=== PATIENT | male | born 1950 | race Caucasian/White ===

== ENCOUNTER 2018-08-18 12:35 | Inpatient (IN) | payer BC, MEDICARE ==
[~2018-08-18] VITALS: Ht 167.6 cm; Wt 88.0 kg
[2018-08-18] MEDS ORDERED: ASPIRIN 32325 MG/TAB PO (12:59)
[2018-08-18] MEDS ORDERED: LEVEMIR100 U/ML SQ (13:00)
[2018-08-18] MEDS ORDERED: FARXIGA10 PO (13:00)
[2018-08-18] MEDS ORDERED: GLUCOPHAGE500 MG/TAB PO (13:02)
[2018-08-18] MEDS ORDERED: LOPRESSOR 550 MG/TAB PO (13:02)
[2018-08-18] MEDS ORDERED: PLAVIX 75MG TAB75 MG PO (13:04)
[2018-08-18] MEDS ORDERED: CELEXA 20MG20 MG/TAB PO (13:04)
[2018-08-18] MEDS ORDERED: DOXYCYCLINE 10100 MG PO (13:05)
[2018-08-18] MEDS ORDERED: CRESTOR40 MG PO (13:05)
[2018-08-18] MEDS ORDERED: JANUVIA 100MG100 MG PO (13:06)
[2018-08-18 13:07] VITALS: BP 129/67; PULSE 51; TEMP 98
[2018-08-18] MEDS ORDERED: HYZAAR 12.5 MG-1 TAB PO (13:07)
[2018-08-18 15:22] LABS: BASO % 0.3 % (0.0-2.0); EOS # 0.2 (0.0-0.7); EOS % 2.2 % (0-4.0); GRAN # 4.1 (1.4-6.5); GRAN % 55.5 % (42.2-75.2); HEMATOCRIT 49.3 % (42.0-52.0); HEMOGLOBIN 16.6 g/dl (13.5-18.0); LYMPH # 2.2 (1.2-3.4); MEAN CELL VOLUME 91 fl (80.0-100.0); MEAN CORPUSCULAR HEMOGLOBIN 31 pg (27.0-31.0); MEAN CORPUSCULAR HGB CONC 34 g/dl (33.0-37.0); MEAN PLATELET VOLUME 12.9 fl (7.4-10.4); MONO # 0.9 (0.1-0.6); MONO % 11.5 % (1.7-9.3); PLATELET COUNT 105 K/mm3 (130-400); RED BLOOD COUNT 5.42 M/mm3 (4.20-5.60); REDCELL DISTRIBUTION WIDTH-CV 13.3 % (11.5-14.5)
[2018-08-18 15:24] LABS: PROTHROMBIN TIME 11.9 SECONDS (9.7-12.8)
[2018-08-18 15:27] LABS: PARTIAL THROMBOPLASTIN TIME 34.1 SECONDS (26.0-37.0)
[2018-08-18 15:32] LABS: ALANINE AMINOTRANSFERASE 38 U/L (21-72); ALBUMIN 3.9 gm/dL (3.5-5.0); ALKALINE PHOSPHATASE 58 U/L (50-136); ANION GAP 11 mmol/L (7-16); AST,SGOT 34 U/L (15-37); BILIRUBIN,TOTAL 0.5 mg/dL (0.0-1.0); BLOOD UREA NITROGEN 21 mg/dL (9-20); CALCIUM 9.1 mg/dL (8.4-10.2); CARBON DIOXIDE 28 mmol/L (22-30); CHLORIDE 101 mmol/L (98-107); GLUCOSE 120 mg/dL (74-106); MAGNESIUM 1.7 mg/dL (1.6-2.3); POTASSIUM 4.3 mmol/L (3.4-5.0); SODIUM 139 mmol/L (137-145)
[2018-08-18 15:48] LABS: TROPONIN-I < 0.012 ng/mL (0.000-0.034)
[2018-08-18 16:00] VITALS: BP 142/94
[2018-08-19] VITALS (14 sets, daily range): BP systolic 109–173; BP diastolic 57–87; PULSE 46–76; TEMP 98–98.6
[2018-08-19 06:09] LABS: CHOLESTEROL RISK RATIO 4.8
[2018-08-19 06:38] LABS: ANION GAP 9 mmol/L (7-16); BLOOD UREA NITROGEN 26 mg/dL (9-20); CALCIUM 8.4 mg/dL (8.4-10.2); CARBON DIOXIDE 25 mmol/L (22-30); CHLORIDE 102 mmol/L (98-107); CREATININE, serum 1.04 mg/dL (0.66-1.25); GLUCOSE 145 mg/dL (74-106); SODIUM 136 mmol/L (137-145)
[2018-08-19 06:53] LABS: TROPONIN-I < 0.012 ng/mL (0.000-0.034)
[2018-08-20 00:10] VITALS: BP 139/69; PULSE 50; TEMP 97.8
[2018-08-20 05:09] VITALS: BP 144/63; PULSE 50; TEMP 98.5
[2018-08-20 07:46] VITALS: BP 141/57; PULSE 55; TEMP 98.4
[2018-08-20 07:49] LABS: BASO % 0.4 % (0.0-2.0); EOS # 0.2 (0.0-0.7); EOS % 2.9 % (0-4.0); GRAN # 3.7 (1.4-6.5); GRAN % 54.2 % (42.2-75.2); HEMATOCRIT 46.1 % (42.0-52.0); HEMOGLOBIN 15.3 g/dl (13.5-18.0); LYMPH # 1.9 (1.2-3.4); LYMPH % 27.6 % (20.0-51.0); MEAN CELL VOLUME 92 fl (80.0-100.0); MEAN CORPUSCULAR HEMOGLOBIN 31 pg (27.0-31.0); MEAN CORPUSCULAR HGB CONC 33 g/dl (33.0-37.0); MEAN PLATELET VOLUME 13.7 fl (7.4-10.4); MONO % 14.2 % (1.7-9.3); PLATELET COUNT 100 K/mm3 (130-400); RED BLOOD COUNT 5.02 M/mm3 (4.20-5.60); REDCELL DISTRIBUTION WIDTH-CV 13.1 % (11.5-14.5)
[2018-08-20 08:00] LABS: CALCIUM 8.2 mg/dL (8.4-10.2); CREATININE, serum 0.99 mg/dL (0.66-1.25)
[2018-08-20] MEDS ORDERED: BRILINTA90 MG PO (08:47)
[2018-08-20] MEDS ORDERED: ASPIRIN E.C. 8181 MG PO (08:48)
== END 2018-08-20 10:31 | disposition home or self-care (01) | DRG 247 ==
LOC: MEDICAL 12:35 → PEDS 08-19 13:00 → MEDICAL 08-19 13:01
PROVIDERS: Nurse Practitioner; Physician Assistant
PROC: B2111ZZ Fluoroscopy of Multiple Coronary Arteries using Low Osmolar Contrast (ICD-10-PCS; principal; 2018-08-19)
PROC: 027034Z Dilation of Coronary Artery, One Artery with Drug-eluting Intraluminal Device, Percutaneous Approach (ICD-10-PCS; 2018-08-19)
PROC: 02703ZZ Dilation of Coronary Artery, One Artery, Percutaneous Approach (ICD-10-PCS; 2018-08-19)
DX: I25.110 Atherosclerotic heart disease of native coronary artery with unstable angina pectoris (principal); T82.855A Stenosis of coronary artery stent, initial encounter; N17.9 Acute kidney failure, unspecified; I10 Essential (primary) hypertension; E11.9 Type 2 diabetes mellitus without complications; E78.5 Hyperlipidemia, unspecified; F17.210 Nicotine dependence, cigarettes, uncomplicated; Z95.5 Presence of coronary angioplasty implant and graft
CPT/HCPCS: 99232-AI; 99239; C1725; C1769; C1874; C1887; C9600; G0378; J1644; J1815; J2250; J3010; J7030; Q9967

== ENCOUNTER 2019-04-01 05:34 | Day surgery (SDC) | payer BC ==
[~2019-04-01] VITALS: Ht 167.6 cm; Wt 89.2 kg
[2019-04-01] VITALS (10 sets, daily range): BP systolic 119–167; BP diastolic 56–89; PULSE 51–59; TEMP 98.1
[~2019-04-01 05:34] MED LIST: ASPIRIN 32325 MG/TAB PO; ASPIRIN E.C. 8181 MG PO; BRILINTA90 MG PO; CELEXA 20MG20 MG/TAB PO; CRESTOR40 MG PO; DOXYCYCLINE 10100 MG PO; FARXIGA10 PO; GLUCOPHAGE500 MG/TAB PO; HYZAAR 12.5 MG-1 TAB PO; JANUVIA 100MG100 MG PO; LEVEMIR100 U/ML SQ; LOPRESSOR 550 MG/TAB PO; PLAVIX 75MG TAB75 MG PO
[2019-04-01 06:43] LABS: HEMATOCRIT 43.2 % (42.0-52.0); HEMOGLOBIN 14.4 g/dl (13.5-18.0); MEAN CELL VOLUME 88 fl (80.0-100.0); MEAN CORPUSCULAR HEMOGLOBIN 29 pg (27.0-31.0); MEAN CORPUSCULAR HGB CONC 33 g/dl (33.0-37.0); MEAN PLATELET VOLUME 12.7 fl (7.4-10.4); PLATELET COUNT 146 K/mm3 (130-400); RED BLOOD COUNT 4.92 M/mm3 (4.20-5.60); REDCELL DISTRIBUTION WIDTH-CV 13.2 % (11.5-14.5)
[2019-04-01 06:47] LABS: PROTHROMBIN TIME 11.2 SECONDS (9.7-12.8)
[2019-04-01 06:53] LABS: CALCIUM 9.4 mg/dL (8.4-10.2); CREATININE, serum 1.14 (0.66-1.25); POTASSIUM 4.4 mmol/L (3.4-5.0)
[2019-04-01] MEDS ORDERED: ASPIRIN 81M81 MG/TA2 PO (07:50)
[2019-04-01] MEDS ORDERED: BRILINTA90 MG PO (07:57)
[2019-04-01] MEDS ORDERED: ZEBETA 5MG5 MG PO (07:58)
[2019-04-01] MEDS ORDERED: OMEGA-3 1000 MG1 CAP PO (07:58)
--- NOTE | 2019-04-01 08:54 | NUR ---
Pt to procedure at this time.
--- NOTE | 2019-04-01 09:13 | NUR ---
ALL MEDICATIONS GIVEN WITH VORB WITH MD. SEE MERGE FOR ALL MEDICATION ADMIN TIMES. SEE MERGE FOR RASS ASSESSMENTS DURINGS AND POST PROCEDURE. POSITIVE BARBEAU'S TEST IN THE RIGHT WRIST, PULSE +2.
[2019-04-01] MEDS ORDERED: NORVASC2.5 MG PO (12:23)
--- NOTE | 2019-04-01 14:00 | NUR ---
Discharge instructions given to pt.Pt verbalizes understanding.INT removed,catheter tip intact.Pt family here to pick him up.Pt escorted out via wheelchair by this nurse.
== END 2019-04-01 14:05 | disposition home or self-care (01) ==
LOC: COL.CAR 05:34
PROVIDERS: Internal Medicine Cardiovascular Disease
DX: I25.119 Atherosclerotic heart disease of native coronary artery with unspecified angina pectoris (principal); R94.39 Abnormal result of other cardiovascular function study; T82.855A Stenosis of coronary artery stent, initial encounter
CPT/HCPCS: J1644; J2250; J3010; Q9967

== ENCOUNTER → 2019-06-15 | Outpatient (CLI) | payer BC, OTHER ==
[~2019-06-15] MED LIST changes: +ASPIRIN 81M81 MG/TA2 PO; +NORVASC2.5 MG PO; +OMEGA-3 1000 MG1 CAP PO; +ZEBETA 5MG5 MG PO
== END ==
LOC: DIA.ED 13:39
DX: E11.40 Type 2 diabetes mellitus with diabetic neuropathy, unspecified (principal); E78.5 Hyperlipidemia, unspecified; I10 Essential (primary) hypertension; E66.9 Obesity, unspecified
CPT/HCPCS: G0108

== ENCOUNTER → 2019-06-23 | Outpatient (CLI) | payer BC | LOC: DIA.ED 09:46 | DX: E11.40 Type 2 diabetes mellitus with diabetic neuropathy, unspecified (principal); E78.5 Hyperlipidemia, unspecified; I10 Essential (primary) hypertension; E66.9 Obesity, unspecified; Z79.4 Long term (current) use of insulin | CPT/HCPCS: G0108 ==

== ENCOUNTER → 2019-08-03 | Outpatient (CLI) | payer BC | LOC: DIA.ED 07-20 15:30 | DX: E11.40 Type 2 diabetes mellitus with diabetic neuropathy, unspecified (principal); E78.5 Hyperlipidemia, unspecified; I10 Essential (primary) hypertension; E66.9 Obesity, unspecified; Z79.4 Long term (current) use of insulin | CPT/HCPCS: G0108 ==

== ENCOUNTER → 2019-09-07 | Outpatient (CLI) | payer MEDICARE, OTHER | LOC: DIA.ED 10:10 | DX: E11.40 Type 2 diabetes mellitus with diabetic neuropathy, unspecified (principal); E78.5 Hyperlipidemia, unspecified; I10 Essential (primary) hypertension; E66.9 Obesity, unspecified; Z79.4 Long term (current) use of insulin ==